=== PATIENT | male | born 1970 | race Caucasian/White ===

== ENCOUNTER 2016-11-12 11:23 | Emergency (ER) ==
[2016-11-12 11:30] VITALS: BP 116/72
--- NOTE | 2016-11-12 12:24 | Diag Imaging Result Document ---
PROCEDURE NAME: FINGER(S)-RIGHT - 11/12/2016 RIGHT INDEX FINGER, THREE VIEWS: FINDINGS: No fracture. No dislocation. IMPRESSION: No acute bony injury.
--- NOTE | 2016-11-12 12:30 | PROVIDER DOCUMENTATION ---
HPI-Musculoskeletal Pain/Inj - GENERAL Chief Complaint: Extremity Injury Stated Complaint: FINGER INJURY Time Seen by Provider: 11/12/16 12:25 Source: patient - HX OF PRESENT ILLNESS-MUSKULOSKELTAL Nature of Presenting Problem: This pt presents today c complaints of R 2nd digit pain after hyperextending his finger last night while "wrestling around with my old lady." He reports swelling and pain. He states that he splinted it himself c some popsicle sticks but is concerned that it may be broken. Quality of Pain: reports: aching Severity in ED: mild Onset/Duration: last night Timing: still present Modifying Factors: improves with: movement, palpation Any recent injury?: Yes Locality of Occurance: Home Similar Symptoms Previously?: No Recently seen or treated by another doctor?: No Review of Systems - Adult - REVIEW OF SYSTEMS - ADULT Constitutional: reports: no symptoms reported. denies: chills, fever Eyes: reports: no symptoms reported. denies: discharge, dry eyes Ears, Nose, Mouth & Throat: reports: no symptoms reported. denies: ear discharge, ear pain Cardiovascular: reports: no symptoms reported. denies: chest pain, edema Respiratory: reports: no symptoms reported. denies: chronic cough, cough Gastrointestinal: reports: no symptoms reported. denies: abdominal pain, hematemesis Genitourinary: reports: no symptoms reported. denies: dysuria, discharge Musculoskeletal: reports: joint pain, joint swelling. denies: bone pain, back pain Integumentary: reports: no symptoms reported. denies: hives, hair loss Neurological: reports: no symptoms reported. denies: ataxia, dizziness/vertigo Psychiatric: reports: no symptoms reported. denies: anxiety, anti-depressant use Endocrine: reports: no symptoms reported Hematologic/Lymphatic: reports: no symptoms reported Allergic/Immunologic: reports: no symptoms reported All Other Systems: Reviewed and Negative Past History - Adult - PAST MEDICAL HISTORY-ADULT Review of Records: reports: Old Records Reviewed, Nursing Assessment Review, Medications Reviewed, Social history reviewed & non-contributory. Major Childhood Illnesses: reports: denies history Cardiovascular: reports: denies history Respiratory: reports: denies history Gastrointestinal: reports: denies history Obstetrical/Gynecological: reports: denies history Genitourinary: reports: denies history Musculoskeletal: reports: chronic pain, intervertebral disc disease Neurological: reports: denies history Psychiatric: reports: anxiety Endocrine/Immune: reports: denies history Other Conditions: reports: denies history - PRIOR SURGERIES/PROCEDURES Surgical/Procedure History: reports: reviewed, not pertinent - PRIOR HOSPITALIZATIONS Prior Hospitalizations: reports: none - IMMUNIZATION STATUS Childhood Immunizations: See Nurse Assessment Flu Vaccine: See Nurse Assessment - FAMILY HISTORY Family History: reviewed, not pertinent Physical Exam-Injury Related - Physical Exam-Injury Related Initial Vital Signs Reviewed: Yes General Appearance: appears well, alert, no apparent distress Eyes: PERRL/EOMI, pink conjunctivae Head, Ears, Nose, Mouth & Throat: normocephalic/atraumatic, normal ENT inspection, TMs normal, pharynx normal Neck: non-tender, full range of motion, supple, normal inspection Respiratory: chest non-tender, lungs clear, normal breath sounds, no pleuratic chest pain, no respiratory distress, no accessory muscle use Cardiovascular: normal peripheral pulses, regular rate, rhythm, no edema, no gallop, no JVD, no murmur Abdominal Exam: normal bowel sounds, non tender, soft, no organomegaly, no pulsatile mass Lymphatic: no adenopathy Back Exam: normal inspection, no CVA tenderness, no vertebral tenderness Extremity: normal gait, no pedal edema, no calf tenderness, normal capillary refill, pelvis stable, swelling, tenderness. negative: deformity, erythema, pulse deficit, pedal edema, slow capillary refill Integumentary: normal color, warm/dry Neurologic: rn interventional II-XII nml as tested, no motor/sensory deficits Psych/Mental Status: AL, normal mood/affect, normal thought content, normal thought process, oriented x 3 Progress - PLAN OF CARE/RESULTS Progress/Plan/Lab Results: Orders Category Date Time Status Finger Splint DIRECTED Care 11/12/16 12:25 Active FINGER(S)-RIGHT [RAD] Stat Exams 11/12/16 11:31 Draft Vital Signs Temp Pulse Resp BP Pulse Ox 11/12/16 11:27 99.5 F 83 18 116/72 98 No Known Allergies Allergy (Verified 11/12/16 11:30) - XRAY 1 XRAY: Right XRAY Study: Hand XRAY Interpretation: no fx/dislocation Departure - Departure Time of Disposition Order: 12:29 DIAGNOSIS: Sprain of finger of right hand Qualifiers: Encounter type: initial encounter Qualified Code(s): S63.619A - Unspecified sprain of unspecified finger, initial encounter Disposition: HOME 01 Certified Medical Emergency: Urgent Condition: Good Additional Instructions: Take medication as prescribed. Rest and ice finger. Follow up with your primary care provider or orthopedist. ED Follow Up Instructions: You have been treated by a care provider in the Emergency Department. These instructions are being provided to you so you can have an understanding of how to care for yourself upon discharge. Upon discharge from the Emergency Department, you are responsible for making arrangements for follow-up care by a physician of your choice. Take all prescribed medications as directed. Return to the Emergency Department immediately for any new or worsening symptoms. You may call the Physician Referral phone number at [phone] to obtain a list of Physicians who are taking new patients. Prescriptions: Meloxicam [Mobic] 7.5 mg PO DAILY PRN PRN #15 tablet PRN Reason: Pain Referrals: None,PCP [Primary Care Provider] - Pepito Kwong MD [STAFF PHYSICIAN] - Attestation - Physician/ Mid-level Attestation Patient care was provided by Mid-level provider (INDUSTRIAL RENDERER/PA):: Yes Mid-level provider:: Ramez Sands Mid-level documentation review:: The Mid-level provider documentation, treatment plan and medical decision making was reviewed by the physician who agrees with all treatment and medical decision making by the P.
== END 2016-11-12 12:35 | disposition home or self-care (01) ==
LOC: P.ED 11:23
DX: S63.619A Unspecified sprain of unspecified finger, initial encounter (principal); M79.644 Pain in right finger(s); M79.89 Other specified soft tissue disorders; M48.9 Spondylopathy, unspecified; G89.29 Other chronic pain; X58.XXXA Exposure to other specified factors, initial encounter
CPT/HCPCS: 73140; 99283

== ENCOUNTER 2017-01-07 15:56 | Emergency (ER) ==
[2017-01-07 16:11] VITALS: BP 137/93
--- NOTE | 2017-01-07 17:35 | PROVIDER DOCUMENTATION ---
HPI-General Adult - General Source: patient - History of Present Illness -Gen Adult Nature of Presenting Problems: pt is a 46 y/o M that present to the ER with cough/congestion, n/v/d, and body aches x 6 days. improving symptoms, no fever chills Location of Pain/Injury: reports: generalized Pain Radiation: reports: no radiation Quality of Pain: reports: aching Severity: reports: mild Onset/Duration: reports: gradual, 6 days ago Timing: reports: still present, constant Context/Activities at Onset: reports: none Modifying Factors: improves with: nothing Associated Symptoms: reports: cough, muscle aches, nausea, vomiting. denies: constipation, diarrhea, dizziness, fever/chills, genitourinary problems Similar Symptoms Previously?: No Recently seen or treated by another doctor?: No <Vijay Wilson - Last Filed: 01/07/17 17:32> <Eleno Burrows - Last Filed: 01/07/17 17:38> - General Chief Complaint: Flu Symptoms Stated Complaint: FLU LIKE SX/POSS ABSCESS Time Seen by Provider: 01/07/17 17:27 Allergies/Adverse Reactions: Patient Allergies Allergy/AdvReac Type Severity Reaction Status Date / Time No Known Allergies Allergy Verified 11/12/16 11:30 Home Medications: Home Medication List Medication Instructions Recorded Confirmed Last Taken Type Meloxicam [Mobic] 7.5 mg PO DAILY PRN PRN #15 tablet 11/12/16 Unknown Rx Methylprednisolone [Medrol Dosepak] 4 mg PO DIRECTED #1 package 01/07/17 Unknown Rx Sulfamethoxazole/Trimethoprim 1 each PO BID #14 tablet 01/07/17 Unknown Rx [Bactrim Ds Tablet] Review of Systems - Adult - REVIEW OF SYSTEMS - ADULT Constitutional: denies: chills, fever Eyes: denies: double vision Ears, Nose, Mouth & Throat: denies: ear discharge, ear pain, epistaxis, throat pain, throat swelling Cardiovascular: denies: chest pain, palpitations, syncope Respiratory: reports: cough. denies: shortness of breath, wheezing Gastrointestinal: reports: diarrhea, nausea, vomiting. denies: abdominal pain Genitourinary: reports: no symptoms reported Musculoskeletal: reports: muscle aches, muscle weakness Integumentary: reports: no symptoms reported Neurological: reports: no symptoms reported Psychiatric: reports: no symptoms reported Endocrine: reports: no symptoms reported Hematologic/Lymphatic: reports: no symptoms reported Allergic/Immunologic: reports: no symptoms reported All Other Systems: Reviewed and Negative <Vijay Wilson - Last Filed: 01/07/17 17:32> Past History - Adult - PAST MEDICAL HISTORY-ADULT Review of Records: reports: Old Records Reviewed, Nursing Assessment Review, Medications Reviewed Major Childhood Illnesses: reports: denies history Cardiovascular: reports: denies history Respiratory: reports: denies history Gastrointestinal: reports: denies history Obstetrical/Gynecological: reports: denies history Genitourinary: reports: denies history Musculoskeletal: reports: chronic pain, intervertebral disc disease Neurological: reports: denies history Psychiatric: reports: anxiety Endocrine/Immune: reports: denies history Other Conditions: reports: denies history - PRIOR SURGERIES/PROCEDURES Surgical/Procedure History: reports: reviewed, not pertinent - PRIOR HOSPITALIZATIONS Prior Hospitalizations: reports: none - IMMUNIZATION STATUS Childhood Immunizations: See Nurse Assessment Flu Vaccine: See Nurse Assessment - FAMILY HISTORY Family History: reviewed, not pertinent <Vijay Wilson - Last Filed: 01/07/17 17:32> Physical Exam-General - PHYSICAL EXAM-ADULT Initial Vital Signs Reviewed: Yes - CONSTITUTIONAL General Appearance: alert, no apparent distress - EYES Eyes: PERRL/EOMI, pink conjunctivae - HEAD, EARS, NOSE, MOUTH & THROAT HENMT: normocephalic/atraumatic, moist mucous membranes, normal ENT inspection - NECK Neck: full range of motion, normal inspection. negative: lymphadenopathy - RESPIRATORY Respiratory: lungs clear, normal breath sounds, no respiratory distress, no accessory muscle use - CARDIOVASCULAR Cardiovascular: regular rate, rhythm, no edema, no murmur - GASTROINTESTINAL (ABDOMEN) Abdominal Exam: normal bowel sounds, non tender, soft, no organomegaly, no pulsatile mass - MUSCULOSKELETAL Back Exam: no CVA tenderness, no vertebral tenderness Extremity: normal range of motion, normal inspection - SKIN Integumentary: normal color, warm/dry - NEUROLOGIC Neurologic: grossly normal, no motor/sensory deficits - PSYCHIATRIC Psych/Mental Status: normal mood/affect, normal thought content, normal thought process, oriented x 3 <Vijay Wilson - Last Filed: 01/07/17 17:32> Progress - PLAN OF CARE/RESULTS Progress/Plan/Lab Results: Vital Signs Temp Pulse Resp BP Pulse Ox 01/07/17 16:09 97.9 F 88 18 137/93 100 No Known Allergies Allergy (Verified 11/12/16 11:30) Meloxicam [Mobic] 7.5 mg PO DAILY PRN PRN #15 tablet 11/12/16 Orders Category Date Time Status Flu Swab [INFLUENZA SCREEN A/B] Stat Lab 01/07/17 16:11 Completed <Vijay Wilson - Last Filed: 01/07/17 17:32> Departure <Vijay Wilson - Last Filed: 01/07/17 17:32> - Departure Time of Disposition Order: 17:37 Certified Medical Emergency: Emergent <Eleno Burrows - Last Filed: 01/07/17 17:38> - Departure DIAGNOSIS: Upper respiratory infection Qualifiers: URI type: unspecified URI Qualified Code(s): J06.9 - Acute upper respiratory infection, unspecified Disposition: HOME 01 Condition: Stable Additional Instructions: ED Follow Up Instructions: You have been treated by a care provider in the Emergency Department. These instructions are being provided to you so you can have an understanding of how to care for yourself upon discharge. Upon discharge from the Emergency Department, you are responsible for making arrangements for follow-up care by a physician of your choice. Take all prescribed medications as directed. Return to the Emergency Department immediately for any new or worsening symptoms. You may call the Physician Referral phone number at [phone] to obtain a list of Physicians who are taking new patients. Prescriptions: Sulfamethoxazole/Trimethoprim [Bactrim Ds Tablet] 1 each PO BID #14 tablet Methylprednisolone [Medrol Dosepak] 4 mg PO DIRECTED #1 package Attestation - Scribe Verification/Attestation Scribe:: Vijay Wilson Acting as Scribe for:: Eleno Burrows Scribe documention review:: This chart was documented by a scribe and accurately reflects the service the provider performed and the decisions made by the provider. - Physician/ DONN Attestation Patient care was provided by Advanced Practice Provider:: Yes Advanced Practice Provider:: Eleno Burrows Advanced Practice Provider documentation review:: The Mid-level provider documentation, treatment plan and medical decision making was reviewed by the physician who agrees with all treatment and medical decision making by the P. <Vijay Wilson - Last Filed: 01/07/17 17:32> Physician Attestation - Physician Attestation I, the provider, attest to the following statement:: Eleno Burrows Physician documentation Attestation:: This documentation recorded by the scribe accurately reflects the service I personally performed and the decisions made by me. <Vijay Wilson - Last Filed: 01/07/17 17:32>
== END 2017-01-07 18:15 | disposition home or self-care (01) ==
LOC: ED 15:56
DX: J06.9 Acute upper respiratory infection, unspecified (principal); R05 Cough; R19.7 Diarrhea, unspecified; R11.2 Nausea with vomiting, unspecified; M79.1 Myalgia; M62.81 Muscle weakness (generalized); G89.29 Other chronic pain
CPT/HCPCS: 87804

== ENCOUNTER 2017-01-11 00:55 | Emergency (ER) ==
--- NOTE | 2017-01-11 01:23 | PROVIDER DOCUMENTATION ---
Addendum entered and electronically signed by Franky Lagunas MD 01/11/17 09:31: Departure - Departure Time of Disposition Order: 09:28 DIAGNOSIS: Depression, Suicidal ideation, Benzodiazepine abuse Disposition: HOME 01 Certified Medical Emergency: Emergent Condition: Stable Referrals: None,PCP [Primary Care Provider] - Instructions: Major Depressive Disorder, Depression, Adult, [id number], Finding Treatment for Addiction, Chemical Dependency, Benzodiazepine Withdrawal Addendum entered and electronically signed by Franky Lagunas MD 01/11/17 09:28: Additional Progress - ADDITIONAL PLAN OF CARE/RESULTS Additional Progress/Plan/Lab Results: Pt has requested that he be allowed to go to outpt tx, rather than be admitted. Have talked with pt. He is actually scheduled to go to rehab in [place], but would rather be local outpt, which is closer, and would cost less. His main drug is Xanax, which he buys off the street. He states that last night, was feeling depressed since a best friend of his friend (who is at bedside) had been murdered, so he took about 8 Xanax, and drank a few beers, and got even more depressed. Has noticed that if takes too many Xanax, he gets more depressed. He had no definite plans last pm, and says that he does not want to . Feel that outpt is a viable, and is prob the best option Original Note: HPI-Psychological Disorder - General Source: patient - History of Present Illness-Psych Onset/Duration: reports: 1-3 hours ago Timing: reports: still present Severity: reports: moderate Situational problems related to:: reports: recent Psychiatric Complaints: reports: depressed Substance Use: reports: alcohol Previous psych related hospitalizations?: Yes Patient arrived by:: private car Similar Symptoms Previously?: No Recently seen or treated by another doctor?: No <Finn Low - Last Filed: 01/11/17 01:38> <Wilder Romo - Last Filed: 01/11/17 05:42> - General Chief Complaint: Psych Stated Complaint: OVERDOSE, PSYCH, SI Time Seen by Provider: 01/11/17 01:18 Allergies/Adverse Reactions: Patient Allergies Allergy/AdvReac Type Severity Reaction Status Date / Time No Known Allergies Allergy Verified 01/11/17 01:20 Home Medications: Home Medication List Medication Instructions Recorded Confirmed Last Taken Type No Home Medications 01/11/17 01/11/17 Unknown History - History of Present Illness-Psych Nature of Presenting Problem: 46 YOWM WITH HX OF SI. WITH C/O PT STATES HE HAD LOST A FRIEND THIS WEEK AND PT IS FEELING DEPRESSED. PT STATES HE IS NOT SUICIDAL NOW, BUT IS AFRAID HE MIGHT BECOME DUE TO HIS DEPRESSION. PT STATES HE TOOK 7 XANAX TONIGHT. PT DOES ADMIT TO DRINKING ALCOHOL WELL. (Finn Low) Review of Systems - Adult - REVIEW OF SYSTEMS - ADULT Constitutional: denies: chills, fever Eyes: reports: no symptoms reported Ears, Nose, Mouth & Throat: reports: no symptoms reported Cardiovascular: denies: chest pain, palpitations, syncope Respiratory: denies: cough, shortness of breath, wheezing Gastrointestinal: denies: abdominal pain, diarrhea, nausea, vomiting Genitourinary: reports: no symptoms reported Musculoskeletal: denies: back pain, neck pain Integumentary: reports: no symptoms reported Neurological: denies: dizziness/vertigo, headache/migraines, syncope Psychiatric: reports: depression, suicidal thoughts Endocrine: reports: no symptoms reported Hematologic/Lymphatic: reports: no symptoms reported Allergic/Immunologic: reports: no symptoms reported All Other Systems: Reviewed and Negative <Finn Low - Last Filed: 01/11/17 01:38> - REVIEW OF SYSTEMS - ADULT Constitutional: reports: see HPI All Other Systems: Reviewed and Negative <Wilder Romo - Last Filed: 01/11/17 05:42> Past History - Adult - PAST MEDICAL HISTORY-ADULT Musculoskeletal: reports: chronic pain, intervertebral disc disease Psychiatric: reports: anxiety - PRIOR SURGERIES/PROCEDURES Surgical/Procedure History: reports: reviewed, not pertinent - PRIOR HOSPITALIZATIONS Prior Hospitalizations: reports: none - IMMUNIZATION STATUS Childhood Immunizations: See Nurse Assessment Flu Vaccine: See Nurse Assessment - FAMILY HISTORY Family History: reviewed, not pertinent - SOCIAL HISTORY Smoking: cigarettes, greater than 1 pack/day Provider spent 3-5 mins advising pt. on dangers of tobacco.: Discussed manners to quit use, and f/u contacts for add'l counseling. Substance Use: alcohol, marijuana Alcohol Use Frequency: occasionally Number of drinks per typical drinking period:: 3-4 drinks Living Situation: alone <Finn Low - Last Filed: 01/11/17 01:38> - PAST MEDICAL HISTORY-ADULT Review of Records: reports: Old Records Reviewed, Nursing Assessment Review, Medications Reviewed, Social history reviewed & non-contributory. <Wilder Romo - Last Filed: 01/11/17 05:42> Physical Exam-Psych Focus - Physical Exam-Psych Appearance: appropriate appearance, alert Neurological: alert Behavior/Eye Contact/Speech: cooperative, good eye contact Thoughts/Hallucinations: no apparent hallucination HENMT: normocephalic/atraumatic, moist mucous membranes Neck: non-tender, full range of motion, supple Respiratory: chest non-tender, lungs clear, normal breath sounds Cardiovascular: normal peripheral pulses, regular rate, rhythm Abdominal Exam: normal bowel sounds, non tender, soft Lymphatic: no adenopathy Back Exam: normal inspection, no CVA tenderness, no vertebral tenderness Extremity: normal range of motion, non-tender Integumentary: normal color, normal turgor, warm/dry <Finn Low - Last Filed: 01/11/17 01:38> Progress - EKG 1 Time of EKG reading by physician:: 01:26 EKG Read and Signed by:: Wilder Romo EKG Interpretation (*Must complete 3 of following elements*): Abnormal Rate: 73 Rhythm: NSR [place]: right QRS: normal DC Interval: normal ST Wave: normal <Finn Low - Last Filed: 01/11/17 01:38> Departure <Finn Low - Last Filed: 01/11/17 01:38> - Departure Time of Disposition Order: 05:41 Certified Medical Emergency: Emergent <Wilder Romo - Last Filed: 01/11/17 05:42> - Departure DIAGNOSIS: Depression, Suicidal ideation Disposition: [facility] Condition: Stable Referrals: None,PCP [Primary Care Provider] - Attestation - Scribe Verification/Attestation Scribe:: Finn Low Acting as Scribe for:: Wilder Romo Scribe documention review:: This chart was documented by a scribe and accurately reflects the service the provider performed and the decisions made by the provider. <Finn Low - Last Filed: 01/11/17 01:38> Physician Attestation
[2017-01-11 01:25] LABS: URINE CULTURE NEEDED? NO; URINE MICRO REVIEW NEEDED? NO; URINE SOURCE CLEAN CATCH
[2017-01-11 01:25] LABS: MANUAL DIFF NEEDED? NO
[2017-01-11 01:29] LABS: BASO% 0.5 % (0.0-0.8); EOS# 0.14 X1000 (0.0-0.7); EOS% 2.5 % (0.0-10.0); HEMATOCRIT 43.4 % (42.0-52.0); HEMOGLOBIN 14.8 g/dL (14.0-18.0); LYMPH# 2.58 X1000 (1.2-3.4); LYMPH% 46.1 % (20.5-51.1); MCH 29.8 PG (27-31); MCHC 34.1 g/dL (33-37); MCV 87.5 FL (81-99); MONO# 0.52 X1000 (0.11-0.59); MONO% 9.3 % (1.7-9.3); MPV 9.9 FL (7.4-10.4); NEUT% 41.6 % (42.2-75.2); PLT 255 X1000 (130-400); RBC 4.96 XMIL (4.7-6.1)
[2017-01-11 01:30] LABS: BILIRUBIN URINE NEGATIVE (NEGATIVE); BLOOD URINE NEGATIVE (NEGATIVE); COLOR STRAW; GLUCOSE URINE NEGATIVE (NEGATIVE); LEUKOCYTES URINE NEGATIVE (NEGATIVE); NITRITE URINE NEGATIVE (NEGATIVE); PH URINE 5.5; PROTEIN URINE NEGATIVE (NEGATIVE); SP GRAVITY URINE 1.004; TURBIDITY URINE CLEAR (CLEAR); UROBILINOGEN URINE NORMAL (NORMAL)
[2017-01-11 01:31] LABS: UR EPITHELIAL CELLS <10 /HPF (<10); URINE BACTERIA NEGATIVE /HPF; URINE RBC <10 /HPF (<10); URINE WBC <10 /HPF (<10)
[2017-01-11 01:45] LABS: UR AMPHETAMINES QUAL NONE DETECTED (NONE DETECT); UR BARBITUATES QUAL NONE DETECTED (NONE DETECT); UR BENZODIAZEPIN QUAL PRESUMPTIVE POSITIVE (NONE DETECT); UR CANNABINOIDS QUAL PRESUMPTIVE POSITIVE (NONE DETECT); UR COCAINE QUAL NONE DETECTED (NONE DETECT); UR METHADONE QUAL NONE DETECTED (NONE DETECT); UR OPIATES QUAL NONE DETECTED (NONE DETECT); UR OXYCODONE QUAL NONE DETECTED (NONE DETECT); UR PCP QUAL NONE DETECTED (NONE DETECT)
[2017-01-11 01:49] LABS: AGAP 13; ALBUMIN 4.6 g/dL (3.5-5.0); ALKALINE PHOSPHATASE 78 U/L (32-122); BUN 7 mg/dL (8-22); CALCIUM 8.9 mg/dL (8.8-10.2); CHLORIDE 100 mmol/L (98-107); COSMO 276; GOT 20 U/L (10-34); GPT 37 U/L (10-44); POTASSIUM 4.5 mmol/L (3.5-5.1); SODIUM 140 mmol/L (136-145); TCO2 27 mmol/L (25-35); TOTAL BILIRUBIN 0.39 mg/dL (0.20-1.00); TOTAL PROTEIN 7.5 g/dL (6.3-8.3)
[2017-01-11 02:04] LABS: FREE T4 1.31 ng/dL (0.93-1.70)
--- NOTE | 2017-01-11 06:03 | EKG Report ---
Test Performed on : 01/11/2017 01:25:10 AM Test Reason : psych; overdose Blood Pressure : / mmHG Vent. Rate : 073 BPM Atrial Rate : 073 BPM P-R Int : 144 ms QRS Dur : 092 ms QT Int : 366 ms P-R-T Axes : 078 091 069 degrees QTc Int : 403 ms Normal sinus rhythm. Rightward axis Borderline ECG No previous ECGs available Unconfirmed Result
[2017-01-11 09:49] VITALS: BP 134/80
== END 2017-01-11 09:57 | disposition home or self-care (01) ==
LOC: ED 00:55
DX: F32.9 Major depressive disorder, single episode, unspecified (principal); R45.851 Suicidal ideations; F19.10 Other psychoactive substance abuse, uncomplicated; R94.31 Abnormal electrocardiogram [ECG] [EKG]; G89.29 Other chronic pain; F17.210 Nicotine dependence, cigarettes, uncomplicated; Z71.6 Tobacco abuse counseling
CPT/HCPCS: 36415; 80053; 81001; 82607; 84439; 84443; 85025; 93005; 99283; G0480; 80320; 80324; 80345; 80346; 80349; 80353; 80358; 80361; 80365; 83992